=== PATIENT | female | born 1955 | race Caucasian/White ===

== ENCOUNTER 2019-08-10 16:03 | Observation (INO) ==
[2019-08-10 16:57] LABS: BASO# 0.03 X1000 (0.0-0.2); BASO% 0.5 % (0.0-0.8); EOS# 0.14 X1000 (0.0-0.7); EOS% 2.3 % (0.0-10.0); HEMATOCRIT 39.7 % (37.0-47.0); HEMOGLOBIN 12.6 g/dL (12.0-16.0); LYMPH# 0.83 X1000 (1.2-3.4); LYMPH% 13.6 % (20.5-51.1); MCH 27.9 PG (27-31); MCHC 31.7 g/dL (33-37); MONO# 0.39 X1000 (0.11-0.59); MONO% 6.4 % (1.7-9.3); NEUT% 77.2 % (42.2-75.2); PLT 179 X1000 (130-400); RBC 4.51 XMIL (4.2-5.4); RDW 13.5 % (11.5-14.5); WBC 6.09 X1000 (4.8-10.8)
--- NOTE | 2019-08-10 17:08 | Diag Imaging Result Doc PS360 ---
EXAM: CHEST-2 VIEWS HISTORY: sob TECHNIQUE: Two views COMPARISON: 12/24/2017 FINDINGS: The lungs are well expanded. The heart is enlarged. There is central vascular prominence There are no infiltrates. No pleural effusions. IMPRESSION: Cardiomegaly with central vascular prominence Electronically signed by Juan Carlos Ortega 08/10/2019 5:06 PM
[2019-08-10] MEDS ORDERED: LASIX IV ONE (17:35)
[2019-08-10 17:39] LABS: ALB/GLOB RATIO 1.5; ALBUMIN 4.3 g/dL (3.5-5.0); POTASSIUM 3.8 mmol/L (3.5-5.1); TOTAL BILIRUBIN 0.6 mg/dL (0.20-1.00); TOTAL PROTEIN 7.1 g/dL (6.3-8.3)
[2019-08-10] MEDS ORDERED: POTASSIUM CHLORIDE 20% LIQUID PO ONE (17:57)
[2019-08-10] MEDS ORDERED: CATAPRES PO ONE (18:05)
--- NOTE | 2019-08-10 18:08 | EKG Report ---
Test Performed on : 08/10/2019 4:17:03 PM Test Reason : sob. Blood Pressure : / mmHG Vent. Rate : 075 BPM Atrial Rate : 078 BPM P-R Int : 000 ms QRS Dur : 088 ms QT Int : 400 ms P-R-T Axes : 000 003 025 degrees QTc Int : 446 ms Atrial fibrillation. Minimal voltage criteria for LVH, may be normal variant Abnormal ECG When compared with ECG of 11-JAN-2018 23:42, Atrial fibrillation. has replaced Sinus rhythm. Criteria for Anterior infarct are no longer present Nonspecific T wave abnormality has replaced inverted T waves in Inferior leads Unconfirmed Result
--- NOTE | 2019-08-10 18:25 | PROVIDER DOCUMENTATION ---
This chart was entered by Susana Ruiz Scribe, acting as scribe for Sami Crabtree DO. HPI-Respiratory General - General Source: patient, family (daughter) - History of Present Illness-Resp Quality of Pain: reports: none Severity in ED: reports: mild Onset/Duration: reports: 3 days ago Timing: reports: getting worse Cough Quality/Degree: reports: productive cough (yellow sputum) Associated Symptoms: reports: cough, shortness of breath. denies: chest pain/soreness, fever/chills Similar Symptoms Previously?: Yes (pneumonia x3 this year) Recently seen or treated by another doctor?: Yes (came from Urgent Care today) <Sami Crabtree - Last Filed: 08/10/19 18:56> <Leoncio Blank - Last Filed: 08/10/19 20:29> - General Chief Complaint: Shortness of Breath Stated Complaint: CHF,FLUID BUILD UP,HIGH BP Time Seen by Provider: 08/10/19 16:25 Allergies/Adverse Reactions: Patient Allergies Allergy/AdvReac Type Severity Reaction Status Date / Time Penicillins Allergy Severe ANAPHYLAXIS Verified 08/10/19 16:53 Home Medications: Home Medication List Medication Instructions Recorded Confirmed Last Taken Type Propranolol [Inderal] 0.5 tab PO DAILY 05/13/12 08/10/19 04/09/16 History BENAZEpril [Lotensin] 20 mg PO BID #0 tablet 12/29/12 08/10/19 04/09/16 Rx ATORVAstatin [Lipitor] 40 mg PO DAILY 08/10/19 08/10/19 Unknown History Calcitonin [Fortical] 1 spr INTRANASAL DAILY 08/10/19 08/10/19 Unknown History Ciprofloxacin HCl [Cipro] 500 mg PO BID #20 tab 08/10/19 Unknown Rx Clopidogrel Bisulfate [Clopidogrel] 75 mg PO DAILY 08/10/19 08/10/19 Unknown History Hydrocodone/Acetaminophen [[place] 1 ea PO TID PRN 08/10/19 08/10/19 Unknown History 7.5-325 Tablet] Nitroglycerin [Nitrostat] 0.4 mg SUBLINGUAL PRN PRN 08/10/19 08/10/19 Unknown History Pantoprazole [Protonix] 40 mg PO DAILY@0700 08/10/19 08/10/19 Unknown History Potassium Chloride 20 meq PO DAILY #30 tab.er.prt 08/10/19 Unknown Rx Pregabalin 50 mg PO DAILY 08/10/19 08/10/19 Unknown History Rivaroxaban [Xarelto] 20 mg PO DAILY 08/10/19 08/10/19 Unknown History - History of Present Illness-Resp Nature of Presenting Problem: Pt is a 63 yowf who came to the ed after going to Urgent Care where they told her she was suffering from CHF after taking an x-ray. Pt has had SOB for the past 3 days that has gotten worse. Pt states that she has been coughing up yellow sputum and has had swelling in her legs but denies pain in chest or abdom en. She complains of sinus pressure. Pt is alert and nontoxic in appearance. Her doctor gave her lasix last week, but she is not taking it. (Sami Crabtree) Review of Systems - Adult - REVIEW OF SYSTEMS - ADULT Constitutional: denies: chills, fever Eyes: reports: no symptoms reported Ears, Nose, Mouth & Throat: reports: no symptoms reported Cardiovascular: denies: chest pain, syncope Respiratory: reports: cough (productive w/ yellow sputum), shortness of breath Gastrointestinal: denies: abdominal pain, vomiting Genitourinary: reports: no symptoms reported Musculoskeletal: reports: no symptoms reported Integumentary: reports: no symptoms reported Neurological: denies: dizziness/vertigo, headache/migraines, syncope Psychiatric: reports: no symptoms reported Endocrine: reports: no symptoms reported Hematologic/Lymphatic: reports: no symptoms reported Allergic/Immunologic: reports: no symptoms reported All Other Systems: Reviewed and Negative <Sami Crabtree - Last Filed: 08/10/19 18:56> Past History - Adult - PAST MEDICAL HISTORY-ADULT Review of Records: reports: Old Records Reviewed, Nursing Assessment Review, Medications Reviewed, Social history reviewed & non-contributory. Major Childhood Illnesses: reports: denies history Cardiovascular: reports: HTN Respiratory: reports: COPD Gastrointestinal: reports: denies history Obstetrical/Gynecological: reports: denies history Genitourinary: reports: denies history Musculoskeletal: reports: denies history Neurological: reports: denies history Psychiatric: reports: denies history Endocrine/Immune: reports: denies history Other Conditions: reports: denies history - PRIOR SURGERIES/PROCEDURES Surgical/Procedure History: reports: reviewed, not pertinent - PRIOR HOSPITALIZATIONS Prior Hospitalizations: reports: for other non-related - IMMUNIZATION STATUS Childhood Immunizations: See Nurse Assessment Flu Vaccine: See Nurse Assessment - FAMILY HISTORY Family History: reviewed, not pertinent - SOCIAL HISTORY Living Situation: alone <Sami Crabtree - Last Filed: 08/10/19 18:56> Physical Exam-General - PHYSICAL EXAM-ADULT Initial Vital Signs Reviewed: Yes (O@ 94 RA) - CONSTITUTIONAL General Appearance: appears well, alert, no apparent distress, obese - EYES Eyes: PERRL/EOMI - HEAD, EARS, NOSE, MOUTH & THROAT HENMT: moist mucous membranes - NECK Neck: non-tender, full range of motion, supple - RESPIRATORY Respiratory: chest non-tender, lungs clear, normal breath sounds - CARDIOVASCULAR Cardiovascular: normal peripheral pulses, regular rate, rhythm - GASTROINTESTINAL (ABDOMEN) Abdominal Exam: normal bowel sounds, non tender, soft - MUSCULOSKELETAL Back Exam: no CVA tenderness, no vertebral tenderness Extremity: normal range of motion, non-tender, normal gait - SKIN Integumentary: normal color, normal turgor, warm/dry - PSYCHIATRIC Psych/Mental Status: normal mood/affect, normal thought content, normal thought process, oriented x 3 <Sami Crabtree - Last Filed: 08/10/19 18:56> - HEART Score HEART Score: History: Slightly Suspicious HEART Score: ECG: Non-Specific Repolarization Disturbance/LBBB/PM HEART Score: Age: 45-65 Years HEART Score: Risk Factors for Atherosclerotic Disease: 1 or 2 Risk Factors HEART Score: Troponin: < or = Normal Limit Total HEART Score:: 3 <Sami Crabtree - Last Filed: 08/10/19 18:56> - HEART Score HEART Score: History: Moderately Suspicious HEART Score: ECG: Non-Specific Repolarization Disturbance/LBBB/PM HEART Score: Age: 45-65 Years HEART Score: Risk Factors for Atherosclerotic Disease: 1 or 2 Risk Factors HEART Score: Troponin: < or = Normal Limit Total HEART Score:: 4 <Leoncio Blank - Last Filed: 08/10/19 20:29> Progress - PLAN OF CARE/RESULTS Result Diagrams: 08/10/19 16:46 08/10/19 16:46 - EKG 1 Time of EKG reading by physician:: 16:20 EKG Read and Signed by:: Sami Crabtree EKG Interpretation (*Must complete 3 of following elements*): Abnormal Rate: 75 Rhythm: Atrial fibrillation [place]: normal QRS: normal [place] Interval: normal ST Wave: normal Comments: Minimal voltage criteria for LVH, may be normal variant - XRAY 1 XRAY Study: Chest Impression: See EMR Report (EXAM: CHEST-2 VIEWS HISTORY: sob TECHNIQUE: Two views COMPARISON: 12/24/2017 FINDINGS: The lungs are well expanded. The heart is enlarged. There is central vascular prominence There are no infiltrates. No pleural effusions. IMPRESSION: Cardiomegaly with central vascular prominence Electronically signed by Juan Carlos Ortega 08/10/2019 5:06 PM 08/10/19 1706 Interpreting Physician: Juan Carlos Ortega MD Dictated Date/Time: 08/10/191704 cc: Sami Crabtree DO; Lisbeth Iverson MD) - CHANGE OF SHIFT REPORT (ED Provider) 1 Report Given and Care Transferred to:: Dr Blank Time of Transfer: 19:00 Items Pending: Other (blood pressure improvement) <Sami Crabtree - Last Filed: 08/10/19 18:56> - PLAN OF CARE/RESULTS Result Diagrams: 08/10/19 16:46 08/10/19 16:46 - CONSULTS/PCP/HOSPITALIST Notification #1 *Consult/PCP/Hospitalist*: Dr Ruano Time Discussed: 20:27 Consult Disposition: Will see in ED, Admit <Leoncio Blank - Last Filed: 08/10/19 20:29> - PLAN OF CARE/RESULTS Progress/Plan/Lab Results: Vital Signs - 8 hr 08/10/19 16:19 Temperature 98.2 F Pulse Rate 76 Respiratory Rate 17 Blood Pressure 217/114 O2 Sat by Pulse Oximetry 94 L Laboratory Results - last 24 hr 08/10/19 08/10/19 08/10/19 16:46 16:46 16:46 WBC RBC Hgb Hct MCV MCH MCHC RDW Std Deviation Plt Count MPV Immature Gran % (Auto) Neut % (Auto) Lymph % (Auto) [place] % (Auto) Eos % (Auto) Baso % (Auto) Immature Gran # (Auto) Neut # (Auto) Lymph # (Auto) [place] # (Auto) Eos # (Auto) Baso # (Auto) Sodium 138 Potassium 3.8 Chloride 100 Carbon Dioxide 25 Anion Gap 13 BUN 10 Creatinine 1.0 H Estimated GFR/1.73 m2 56 BUN/Creatinine Ratio 10 Glucose 101 Calculated Osmolality 275 Calcium 9.0 Total Bilirubin 0.60 AST 23 ALT 11 Alkaline Phosphatase 98 Creatine Kinase 47 Troponin T < 0.010 Svb-L-Vbmzzfkciyo Pept 2214 H Total Protein 7.1 Albumin 4.3 Globulin 2.8 Albumin/Globulin Ratio 1.5 08/10/19 16:46 WBC 6.09 RBC 4.51 Hgb 12.6 Hct 39.7 MCV 88.0 MCH 27.9 MCHC 31.7 L RDW Std Deviation 13.5 Plt Count 179 MPV 9.0 Immature Gran % (Auto) 0.0 Neut % (Auto) 77.2 H Lymph % (Auto) 13.6 L [place] % (Auto) 6.4 Eos % (Auto) 2.3 Baso % (Auto) 0.5 Immature Gran # (Auto) 0.00 Neut # (Auto) 4.70 Lymph # (Auto) 0.83 L [place] # (Auto) 0.39 Eos # (Auto) 0.14 Baso # (Auto) 0.03 Sodium Potassium Chloride Carbon Dioxide Anion Gap BUN Creatinine Estimated GFR/1.73 m2 BUN/Creatinine Ratio Glucose Calculated Osmolality Calcium Total Bilirubin AST ALT Alkaline Phosphatase Creatine Kinase Troponin T Guf-L-Avwwuxejmwa Pept Total Protein Albumin Globulin Albumin/Globulin Ratio Orders Category Date Time Status CHEST-2 VIEWS [RAD] Stat Exams 08/10/19 16:47 Completed CBC WITH ELECTRONIC DIFF [HEME] Stat Lab 08/10/19 16:46 Completed CK PROFILE [SP CHEM] Stat Lab 08/10/19 16:46 Completed COMPREHENSIVE METABOLIC PANEL [CHEM] Stat Lab 08/10/19 16:46 Completed PRO B-NATRIURETIC PEPTIDE Stat Lab 08/10/19 16:46 Completed TROPONIN T Stat Lab 08/10/19 16:46 Completed Clonidine [Catapres] Med 08/10/19 18:05 Discontinued 0.1 mg PO NOW ONE Furosemide [Lasix] Med 08/10/19 17:35 Discontinued 40 mg IV NOW ONE Potassium Chloride 20% Liquid Med 08/10/19 17:57 Discontinued 20 meq PO NOW ONE EKG [EKG] Stat Ther 08/10/19 16:21 Draft At recheck, pt admitted that she has been having chest pressure radiating through to her back for the past day. Pt agrees with plan. (Leoncio Blank) Departure <Sami Crabtree - Last Filed: 08/10/19 18:56> - Departure Date of Disposition Decision: 08/10/19 Time of Disposition Decision: 20:27 Certified Medical Emergency: Emergent - Critical Care Note This patient required my direct & personal management of CC.: No <Leoncio Blank - Last Filed: 08/10/19 20:29> - Departure DIAGNOSIS: CHF (congestive heart failure), HTN (hypertension), Chest pain Disposition: ADMITTED INPATIENT 09 Condition: Fair Additional Instructions: Patient has lasix at home. Take daily and follow up with Dr Robert Campbell 2. ED Follow Up Instructions: You have been treated by a care provider in the Emergency Department. These instructions are being provided to you so you can have an understanding of how to care for yourself upon discharge. Upon discharge from the Emergency Department, you are responsible for making arrangements for follow-up care by a physician of your choice. Take all prescribed medications as directed. Return to the Emergency Department immediately for any new or worsening symptoms. You may call the Physician Referral phone number at [phone] to obtain a list of Physicians who are taking new patients. Prescriptions: Ciprofloxacin HCl [Cipro] 500 mg PO BID #20 tab Potassium Chloride 20 meq PO DAILY #30 tab.er.prt Referrals and Follow-Ups: Lisbeth Iverson MD [Primary Care Provider] - Attestation - Physician/ ELEANOR Attestation Patient care was provided by Advanced Practice Provider:: No The physician spent face to face time with patient:: Yes Advanced Practice Provider documentation review:: Supervising physician onsite and consulted in the evaluation and care of this patient. The physician did have a face to face encounter with the patient. <Sami Crabtree - Last Filed: 08/10/19 18:56> - Physician/ ELEANOR Attestation Patient care was provided by Advanced Practice Provider:: No The physician spent face to face time with patient:: Yes Advanced Practice Provider documentation review:: Supervising physician onsite and consulted in the evaluation and care of this patient. The physician did have a face to face encounter with the patient. <Leoncio Blank - Last Filed: 08/10/19 20:29> This chart was documented by the indicated scribe, (Susana Ruiz, Sumeetibe) and accurately reflects the services I performed and decisions made by , Sami Crabtree DO, as attested by the provider's signature.
[2019-08-10] MEDS ORDERED: NITROGLYCERIN SL PRN (23:14)
[2019-08-10] MEDS ORDERED: FLU VACCINE IM ONE (23:37)
[2019-08-11 00:33] LABS: BASO# 0.05 X1000 (0.0-0.2); BASO% 0.7 % (0.0-0.8); EOS# 0.13 X1000 (0.0-0.7); EOS% 1.9 % (0.0-10.0); HEMATOCRIT 41.2 % (37.0-47.0); HEMOGLOBIN 13.1 g/dL (12.0-16.0); LYMPH# 1.49 X1000 (1.2-3.4); LYMPH% 21.4 % (20.5-51.1); MCH 28.4 PG (27-31); MCHC 31.8 g/dL (33-37); MCV 89.4 FL (81-99); MONO# 0.62 X1000 (0.11-0.59); MONO% 8.9 % (1.7-9.3); MPV 9.5 FL (7.4-10.4); NEUT# 4.66 X1000 (1.4-6.5); NEUT% 67.1 % (42.2-75.2); PLT 196 X1000 (130-400); RBC 4.61 XMIL (4.2-5.4); RDW 13.7 % (11.5-14.5); WBC 6.95 X1000 (4.8-10.8)
--- NOTE | 2019-08-11 02:58 | HISTORY AND PHYSICAL ---
PRIMARY CARE PHYSICIAN: Dr. Iverson. CHIEF COMPLAINT: Chest pain, shortness of breath times several days. HISTORY OF PRESENTING ILLNESS: A 64-year-old morbidly obese female with a history of COPD, coronary artery disease, hypertension and paroxysmal atrial fibrillation, who had presented to emergency department with several days history of having some chest discomfort and shortness of breath. The patient states that it felt like heaviness and she did not feel well, subsequently had come to the emergency department. In the ED, she was evaluated. Due to her presenting symptoms, she will require admission for further management. During her initial presentation she had laboratories done which did show elevated BNP. It was suspected possibly she had CHF. She was given Lasix and she diuresed well. At the time of my examination, she denied any headache, fever, chills, nausea, vomiting, diarrhea, hemoptysis, complained of chest discomfort and shortness of breath. PAST MEDICAL HISTORY: Includes COPD, coronary artery disease, hypertension, GERD, morbid obesity, paroxysmal atrial fibrillation. PAST SURGICAL HISTORY: Left heart catheterization, left knee arthroscopy. CURRENT MEDICATIONS: Atorvastatin 40 mg p.o. daily, benazepril 20 mg p.o. b.i.d., Plavix 75 mg p.o. daily, [place] 7.5 one p.o. t.i.d., pantoprazole 40 mg p.o. daily, pregabalin 50 mg p.o. daily, propranolol 20 mg half tablet daily, Xarelto 20 mg p.o. daily. SOCIAL HISTORY: She is a former smoker. No history of alcohol or illicit drug use. FAMILY HISTORY: No history of coronary artery disease. REVIEW OF SYSTEMS: Fourteen point review of system as listed in HPI. Other systems negative. PHYSICAL EXAMINATION: GENERAL: Cooperative, friendly female. She is resting more comfortably now. VITAL SIGNS: Temperature 98.2 degrees, pulse 76, respirations 17, blood pressure 217/114. HEENT: Atraumatic, normocephalic. Extraocular movements intact. PERRLA. NECK: No masses. CHEST: Bibasilar rales. CARDIOVASCULAR: Regular rate and rhythm. ABDOMEN: Soft, obese, positive bowel sounds. EXTREMITIES: +1 edema. NEUROLOGIC: She is awake, alert, oriented x3. GENITOURINARY: No bladder distention. SKIN: Warm. LABORATORIES AND STUDIES: Sodium 138, potassium 3.8, chloride 100, CO2 is 25, BUN is 10, creatinine is 1.0, glucose is 101. ProBNP is 2214. WBC 6.09, hemoglobin 12.6, hematocrit 39.7, platelets 179,000. Chest x-ray shows cardiomegaly with central vascular prominence. ASSESSMENT: A 64-year-old morbidly obese female with a history of hypertension, chronic obstructive pulmonary disease, gastroesophageal reflux disease and paroxysmal atrial fibrillation, who had presented to the emergency department with several days history of having chest discomfort and shortness of breath. She was evaluated in the emergency department. It was suspected she was having CHF exacerbation. She was given diuresis with Lasix. She improved somewhat. However, due to her presenting symptoms she will require admission for further management. 1. Suspected congestive heart failure exacerbation. 2. Chest pain. 3. Chronic obstructive pulmonary disease. 4. Hypertension. 5. Paroxysmal atrial fibrillation. PLAN: 1. We will admit patient to medical floor with telemetry. 2. We will continue with gentle diuresis with Lasix. 3. We will continue with cardiac workup and trend her troponins. 4. We will consult Cardiology. 5. We will continue with DuoNebs p.r.n. 6. We will monitor blood pressure closely. 7. We will continue with anticoagulation and monitor her on telemetry. 8. Patient is on Xarelto and this will suffice for DVT prophylaxis. 9. We will continue to follow, and reassess and make further recommendation based on patient's clinical course. cc: MD Tevin Contreras MD
[2019-08-11] MEDS ORDERED: LASIX IV SCH (06:30)
[2019-08-11] MEDS: PROTONIX PO SCH (06:38)
[2019-08-11] MEDS: PRILOSEC PO SCH (06:38)
[2019-08-11 06:57] LABS: BASO# 0.03 X1000 (0.0-0.2); BASO% 0.6 % (0.0-0.8); EOS# 0.18 X1000 (0.0-0.7); EOS% 3.4 % (0.0-10.0); HEMATOCRIT 36.9 % (37.0-47.0); HEMOGLOBIN 11.5 g/dL (12.0-16.0); LYMPH# 1.16 X1000 (1.2-3.4); LYMPH% 21.6 % (20.5-51.1); MCH 27.9 PG (27-31); MCHC 31.2 g/dL (33-37); MCV 89.6 FL (81-99); MONO# 0.51 X1000 (0.11-0.59); MONO% 9.5 % (1.7-9.3); MPV 9.5 FL (7.4-10.4); NEUT# 3.48 X1000 (1.4-6.5); NEUT% 64.9 % (42.2-75.2); PLT 174 X1000 (130-400); RBC 4.12 XMIL (4.2-5.4); RDW 13.6 % (11.5-14.5); WBC 5.36 X1000 (4.8-10.8)
[2019-08-11 08:02] LABS: CHOLESTEROL 107 mg/dL (0-200); HDL 34 mg/dL (45-65); LDL 56 mg/dL; TRIGLYCERIDES 85 mg/dL (35-135); VLDL 17 mg/dL
[2019-08-11] MEDS: NORCO-7.5 PO PRN ×2 (09:21→21:00)
[2019-08-11] MEDS: ASPIRIN PO SCH (09:23)
[2019-08-11] MEDS: INDERAL PO SCH (09:24)
[2019-08-11] MEDS: LOTENSIN PO SCH ×2 (09:25→20:54)
[2019-08-11] MEDS: PLAVIX PO SCH (09:25)
[2019-08-11] MEDS: ZOFRAN IV PRN (11:28)
--- NOTE | 2019-08-11 12:15 | PROGRESS NOTE ---
DATE: 08/11/2019 SUBJECTIVE: The patient is feeling much better after receiving the IV Lasix. She has urinated a lot, but no I Os have been obtained. She says outpatient, Dr. Iverson had stopped hydrochlorothiazide due to a bout of gout in her left lower extremity about 6 weeks ago. But she had called him back, and he had started her on Lasix. However, she took it briefly and stopped it, as she says she did like it. She says she sees now that she has to take it. Note, she sees Dr. Jones regularly and has another appointment with him the first of the year. She states she has had 2 heart attacks about 3 years ago and had her last left heart catheterization then and has not had a stress test since that time as well. She denies any chest pain this morning. OBJECTIVE: Vital signs: Afebrile, pulse 67, respirations 18, blood pressure 169/94, O2 saturation on room air 93 to 94 percent. CV: Irregularly irregular. Lungs: CTA. Abdomen: Very protuberant. Morbid obesity noted. Extremities: No major edema. Neurologic: Cranial nerves are intact. No focal deficits. LABORATORY DATA: Reviewed from admission. Cardiac enzymes, troponin levels negative x3. ProBNP on admission was 2214. LDL is 56. Chest x-ray on admission showed some cardiomegaly with central vascular prominence per radiologist. ASSESSMENT: 1. Congestive heart failure exacerbation. 2. Chest pain. 3. History of coronary artery disease. 4. Paroxysmal atrial fibrillation with controlled ventricular response. 5. Chronic obstructive pulmonary disease. 6. Hypertension. 7. Morbid obesity. 8. Gout. The patient may be a candidate for startup of allopurinol to help prevent this since it has been 6 weeks since her attack. PLAN: She is stable on her medications and receiving the Lasix 40 mg IV q.12 hours. She is also on aspirin, Lipitor, Lotensin, Fortical, Plavix, [place] 7.5 p.r.n., omeprazole, pantoprazole, Lyrica, Inderal, Xarelto p.r.n., and clonidine. We will continue the Lasix and current medications. Monitor her blood pressure closely. It may be that she will need additional antihypertensive such as Norvasc or Coreg. We will leave that to Dr. Brown who is going to see her in consultation. We will ask nurses to check I Os and repeat labs and chest x-ray in the morning. cc: MD Tevin Le MD
--- NOTE | 2019-08-11 18:22 | CONSULTATION ---
DATE OF CONSULTATION: 08/11/2019 CARDIOLOGY CONSULTATION: IMPRESSION: 1. Congestive heart failure which appears to have improved with diuresis. 2. Recent cough productive of yellow sputum. Consider possible bronchitis. 3. Atherosclerotic coronary disease. The patient continues without angina. 4. Massive obesity. 5. Chronic obstructive pulmonary disease. 6. Hypertension. 7. Paroxysmal atrial fibrillation. RECOMMENDATIONS: 1. Transition from IV Lasix to oral Lasix. 2. Arrange follow-up echocardiography. 3. Anticipate patient should be able to go home tomorrow after echocardiography. She already has scheduled followup with her regular keg raiser, Dr. Jones, on August 22. HISTORY: This 63-year-old white female with past history of massive obesity, atherosclerotic coronary disease, COPD, paroxysmal atrial fibrillation, hypertension, hyperlipidemia, sleep apnea, and venous insufficiency was admitted through the emergency room yesterday p.m. for diuresis for congestive heart failure. She relates that for several days this past week she has been having cough productive of yellow sputum. However, yesterday she noted some exertional shortness of breath walking across the room. She went to urgent care and had evaluation there which included chest x-ray. She is advised that she appeared to have congestive heart failure and was referred to the emergency room. In emergency room, her proB-natriuretic peptide level was elevated, and she was given IV Lasix. She diuresed and reports feeling better. She has not had any chest discomfort. PAST MEDICAL HISTORY: 1. Massive obesity. 2. Atherosclerotic coronary disease with previous small inferior myocardial infarction March 2016. 3. Hypertension. 4. Hyperlipidemia. 5. Paroxysmal atrial fibrillation. 6. Obstructive sleep apnea. 7. Venous insufficiency of lower extremity. 8. Previous DVT. 9. Previous transient ischemic attack. 10. Chronic obstructive pulmonary disease. 11. Gastroesophageal reflux disease. PAST SURGICAL HISTORY: Includes left knee arthroscopic procedure. ALLERGIES: She is allergic or intolerant to penicillin. MEDICATIONS PRIOR TO ADMISSION: As listed. SOCIAL HISTORY: She has history of previous cigarette use in the past. She does not use alcohol. FAMILY HISTORY: Positive for coronary disease. REVIEW OF SYSTEMS: Pulmonary: Noteworthy for recent cough productive of yellow sputum as well as some exertional shortness of breath. There has been no orthopnea. Gastrointestinal: Noncontributory beyond history present illness. Constitutional: Noncontributory beyond history of present illness. Remainder of review of systems negative/noncontributory beyond history of present illness with 14 total systems reviewed. PHYSICAL EXAMINATION: General: This is a massively obese, older white female in no distress on room air. Vital signs: Blood pressure 169/94, heart rate 67, oxygen saturation 93% to 94% on room air. HEENT: Extraocular movements intact. Mucous membranes are moist. Jugular venous distention cannot be appreciated. There are no carotid bruits. Chest: Clear to auscultation. Cardiac Exam: Reveals a regular rate and rhythm without appreciable murmur or gallop. Abdomen: Obese, nontender. Bowel sounds audible. Extremities: Without edema. There are chronic venous stasis changes. Neurologic: Reveals her to be alert and fully oriented. Speech is fluent. She moves all 4 extremities equally well. Skin: Warm and dry. Psychiatric: Reveals her mood to be appropriate. PERTINENT DATA: Twelve-lead EKG demonstrates atrial fibrillation and minimal voltage criteria for left hypertrophy. LABORATORY DATA: Includes a white blood cell count of 5.36, hematocrit 36.9, hemoglobin 11.5, platelet count 174,000. Sodium 138, potassium 3.8, chloride 100, carbon dioxide 25, BUN 10, creatinine 1. Glucose 101. Initial CPK 46. Follow-up CPK 42. Initial troponin T less than 0.01. Follow-up troponin T less than 0.01. Pro-B natriuretic peptide level 2214. Triglycerides 85, total cholesterol 107, LDL cholesterol 56, VLDL cholesterol 17, HDL cholesterol 34. cc: MD Tevin Mccann MD
[2019-08-11] MEDS: TYLENOL PO PRN (19:15)
[2019-08-11] MEDS: XARELTO PO SCH (20:53)
[2019-08-11] MEDS: LIPITOR PO SCH (20:54)
[2019-08-11] MEDS: LYRICA PO SCH (20:58)
[2019-08-12] MEDS: TYLENOL PO PRN ×2 (01:01→14:22)
[2019-08-12] MEDS: ZOFRAN IV PRN ×2 (01:01→23:50)
[2019-08-12] MEDS: PROTONIX PO SCH (06:06)
[2019-08-12] MEDS: PRILOSEC PO SCH (06:06)
[2019-08-12] MEDS: FORTICAL NAS SCH ×2 (06:09→09:51)
[2019-08-12 07:32] LABS: BASO# 0.05 X1000 (0.0-0.2); EOS# 0.19 X1000 (0.0-0.7); EOS% 3.6 % (0.0-10.0); HEMATOCRIT 40.3 % (37.0-47.0); HEMOGLOBIN 12.6 g/dL (12.0-16.0); LYMPH# 1.11 X1000 (1.2-3.4); LYMPH% 21.2 % (20.5-51.1); MCH 28.5 PG (27-31); MCHC 31.3 g/dL (33-37); MCV 91.2 FL (81-99); MONO# 0.43 X1000 (0.11-0.59); MONO% 8.2 % (1.7-9.3); MPV 9.6 FL (7.4-10.4); NEUT# 3.45 X1000 (1.4-6.5); PLT 173 X1000 (130-400); RBC 4.42 XMIL (4.2-5.4); RDW 13.7 % (11.5-14.5); WBC 5.23 X1000 (4.8-10.8)
[2019-08-12 07:55] LABS: CALCIUM 9.2 mg/dL (8.8-10.2); CREATININE 1.4 mg/dL (0.5-0.9); POTASSIUM 3.8 mmol/L (3.5-5.1)
[2019-08-12] MEDS ORDERED: LASIX PO SCH (09:00)
--- NOTE | 2019-08-12 09:22 | Diag Imaging Result Doc PS360 ---
CHEST-2 VIEWS - 08/12/2019 INDICATION: hypoxia COMPARISON: 08/10/2019 FINDINGS: There has been improvement in the nonspecific bibasilar infiltrates or atelectasis. There is still some focal linear atelectasis worse in the right lung base. Heart size remains borderline enlarged. No pneumothorax or significant pleural effusion. IMPRESSION: Improved aeration of the lung bases. Electronically signed by Sudhir Camilo 08/12/2019 9:20 AM
[2019-08-12] MEDS: ASPIRIN PO SCH ×2 (09:34→09:38)
[2019-08-12] MEDS: LIPITOR PO SCH (09:34)
[2019-08-12] MEDS: XARELTO PO SCH (09:34)
[2019-08-12] MEDS: LYRICA PO SCH ×2 (09:35→09:37)
[2019-08-12] MEDS: LOTENSIN PO SCH ×2 (09:35→22:29)
[2019-08-12] MEDS: INDERAL PO SCH (09:35)
[2019-08-12] MEDS: PLAVIX PO SCH (09:35)
[2019-08-12] MEDS: NORCO-7.5 PO PRN ×2 (09:49→22:27)
--- NOTE | 2019-08-12 17:58 | ECHO REPORT ---
ORDER DATE: 08/12/2019 MEASUREMENTS: Septal thickness 1.3, aortic root 3.5, left atrium 4.8. SUMMARY: 1. Technically difficult study due to limited acoustic window quality. 2. Aortic valve is trileaflet and opens normally on 2-dimensional images. The peak gradient across the aortic valve is 17 mmHg. There is very mild aortic regurgitation. Mitral and tricuspid valves are without evidence of structural abnormality while pulmonic valve is not well demonstrated. There is mild mitral regurgitation and mild tricuspid regurgitation. The estimated systolic PA pressure by Doppler is 45 mmHg suggesting mild pulmonary hypertension. The aortic root is normal in size. 3. Normal left ventricular chamber size with mild concentric left hypertrophy is demonstrated. The estimated left ejection fraction appears to be approximately 60% to 65%. No regional wall motion abnormality is evident. Doppler suggests grade 1 left ventricular diastolic dysfunction. Left atrium is moderately enlarged. The right atrium and right ventricle are normal in size with grossly preserved right ventricular systolic function. 4. No pericardial effusion. 5. Inferior vena cava not well demonstrated. CONCLUSIONS: 1. Very mild aortic regurgitation. 2. Mild mitral regurgitation. 3. Mild tricuspid regurgitation with mild pulmonary hypertension by Doppler. 4. Mild concentric left hypertrophy with estimated left ejection fraction of 60% to 65%. 5. Grade 1 left ventricular diastolic dysfunction suggested. 6. Moderate left atrial enlargement. cc: MD Tevin Mccann MD
--- NOTE | 2019-08-12 17:59 | PROGRESS NOTE ---
DATE: 08/12/2019 SUBJECTIVE: Patient continues without shortness of breath or chest discomfort on room air. OBJECTIVE: Vital Signs: Blood pressure 154/81, heart rate 64, oxygen saturation 96% on room air. There is no significant jugular venous distention. Chest: Clear to auscultation. Cardiac Exam: Reveals a regular rate and rhythm without appreciable murmur or gallop. Extremities: Without edema. LABORATORY DATA: Includes a white blood cell count of 5.23, hematocrit 40.3, hemoglobin 12.6, platelet count 173,000. Sodium 144 potassium 3.8, chloride 100. Carbon dioxide 32, BUN 20, creatinine 1.4, glucose 108. Echocardiography demonstrates mild concentric left hypertrophy with estimated ejection fraction of 60 to 65 percent. There is mild mitral regurgitation, very mild aortic regurgitation, mild tricuspid regurgitation. Mild pulmonary hypertension suggested by Doppler. IMPRESSION: 1. Acute congestive heart failure with preserved left ventricular ejection fraction. Patient improved with diuresis. Labs today suggest. Mild prerenal azotemia. 2. Recent cough productive of yellow sputum. Suspect likely bronchitis. 3. Atherosclerotic coronary disease. Patient continues without angina. 4. Massive obesity. 5. Chronic obstructive pulmonary disease. 6. Hypertensive cardiovascular disease with mild concentric left hypertrophy. 7. Paroxysmal atrial fibrillation. RECOMMENDATIONS: 1. Reduce dose of Lasix to 20 mg p.o. daily. 2. Reasonable for patient to be discharged to home and have followup with her regular payroll consultant, Dr. Jones. She actually already has an appointment scheduled to see him on August 222019. cc: MD Tevin Mccann MD
--- NOTE | 2019-08-12 21:50 | PROGRESS NOTE ---
DATE: 08/12/2019 SUBJECTIVE: A 63-year-old, white female, obese, admitted on 08/10 with a chest pain, shortness of breath. She is morbidly obese. She has history of COPD, coronary artery disease and PAF, hypertension. Please see the H and P. The patient was seen by veterinary parasitologist. The patient got better with IV diuresis. This morning, the patient was in the echo lab. REVIEW OF SYSTEMS: Decreased shortness of breath. No chest pain, as well as swelling. PAST MEDICAL HISTORY: Reviewed. PAST SURGICAL HISTORY: Reviewed. MEDICINES: Reviewed. ALLERGIES: Penicillin. PHYSICAL EXAMINATION: Temperature is 98.4 degrees, pulse 64, blood pressure 154/81, 96% on room air. I's and O's: Negative 250. Weight 316 pounds, decreased from 334. She is morbidly obese. Clinical exam is suboptimal. Lungs: Poor air entry. Heart: Distant heart sounds. Abdomen: Belly is soft, obese. Extremities: 1+ edema. INVESTIGATIONS: CBC: White cell count 5.2, hematocrit 40, platelets 173,000. Sodium 144, potassium 3.8, chloride 100, BUN 20, creatinine 1.4, glucose 108. Cardiac enzymes times 2 negative. ProBNP 2000, cholesterol 107, HDL 34, LDL 56. Echocardiography report, very mild aortic regurgitation, mitral regurgitation, EF 60 to 65 percent with diastolic dysfunction, moderate left atrial enlargement. Chest x-ray stable. EKG: Atrial fibrillation. ASSESSMENT AND PLAN: 1. Congestive heart failure, diastolic dysfunction, chronic atrial fibrillation. 2. Noncritical coronary artery disease. 3. Chronic obstructive pulmonary disease. 4. T6 compression fracture. 5. Acid reflux disease. 6. Osteoarthritis. 7. B12 deficiency. 8. Vitamin D deficiency. 9. Cordarone toxicity. PLAN OF CARE: 1. Continue aspirin, Plavix, Lasix 40 mg daily. 2. T6 compression fracture on calcitonin with calcium and vitamin D. 3. Vitamin B12, vitamin D replacement. 4. Hypertension on Lotensin 20 p.o. b.i.d., Inderal 10 daily. The patient is already on Xarelto for stroke prevention, Inderal for rate control. 5. Gastrointestinal prophylaxis with Protonix. 6. Chronic pain on Lyrica and [place]. 7. Hyperlipidemia on Lipitor. 8. If she continues to improve, will discharge in the morning. Follow up as an outpatient. LEVEL OF DOCUMENTATION: 35 minutes. cc: Tevin Iverson MD
[2019-08-13] MEDS: PROTONIX PO SCH (06:24)
[2019-08-13] MEDS: TYLENOL PO PRN (06:27)
[2019-08-13 07:43] VITALS: BP 150/102
[2019-08-13] MEDS ORDERED: PREVNAR 13 IM ONE (08:23)
[2019-08-13] MEDS ORDERED: LIPITOR PO SCH (09:00)
[2019-08-13] MEDS ORDERED: LASIX PO SCH (09:00)
[2019-08-13] MEDS ORDERED: PNEUMOVAX 23 IM ONE (09:12)
[2019-08-13] MEDS: XARELTO PO SCH (10:35)
[2019-08-13] MEDS: INDERAL PO SCH (10:35)
[2019-08-13] MEDS: LYRICA PO SCH (10:35)
[2019-08-13] MEDS: PLAVIX PO SCH (10:35)
[2019-08-13] MEDS: ASPIRIN PO SCH (10:35)
[2019-08-13] MEDS: LOTENSIN PO SCH (10:35)
[2019-08-13] MEDS: FORTICAL NAS SCH (10:38)
--- NOTE | 2019-08-15 21:40 | DISCHARGE SUMMARY ---
ADMISSION DATE: 08/10/2019 DISCHARGE DATE: 08/13/2019 DISCHARGING DIAGNOSIS: 1. Acute shortness of breath due to diastolic dysfunction. 2. Congestive heart failure with underlying Pickwickian syndrome. SECONDARY DIAGNOSIS: 1. T6 compression fracture, stable. 2. COPD. 3. Noncritical CAD. 4. Hypertension. 5. Acid reflux disease. 6. Morbid obesity. 7. BMI 52. 8. PAF. 9. Osteoarthritis. 10. Vitamin B12 deficiency. 11. Vitamin D deficiency. 12. 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 CONSULT: Donell Caicedo. PROCEDURES: Echocardiography report, very mild AR, mitral regurgitation, ejection fraction 60% with grade 1 diastolic dysfunction. Moderate left atrial enlargement. EKG, atrial fibrillation rate controlled. Chest x-ray improved aeration of both lungs. BRIEF HISTORY: Please see the H and P that was done on 08/10/2019. In brief, she is a 64-year- old morbidly obese female came in with shortness of breath, atypical chest pain. The patient has known history of intermittent atrial fibrillation, not able to tolerate Cordarone. Patient is well known to Dr. Jones. HOSPITAL COURSE: The patient was given oxygen, IV Lasix, and subsequently was ruled out for cardiac enzymes for myocardial infarction. After diuresis her symptoms are much improved. Dr. Brown was consulted and she is going to follow up as an outpatient with Dr. Jones. Patient is anxious to go home. At the time of discharge, weight is 315 pounds. LABS: White cell count 5.2, hematocrit 40, platelets 173,000. Sodium 144, potassium 3.8, chloride 100, BUN 20, creatinine 1.4, glucose 108. ProBNP 2000. Triglycerides 85, cholesterol 107, LDL 56, HDL 34. DISCHARGE INSTRUCTIONS: Encouraged to lose weight. Low-salt diet. Fluid restrictions. Flu vaccine 08/13/2019, pneumococcal vaccine 08/13/2019. Inderal 20 mg half a tab daily, Lotensin 20 p.o. b.i.d., Plavix 75 daily, [place] 7.5 q. 8 h. as needed, Lyrica 50 mg daily, Xarelto 20 daily, Lipitor 40 daily, calcitonin spray 1 spray daily, Protonix 40 daily, Lasix 40 daily. Follow up in my office in 10 days as well as Dr[address] Jones. cc: MD Adam Costa MD
== END 2019-08-13 10:47 | disposition home or self-care (01) ==
LOC: ED 16:03 → SUATTDRO 22:25 → INTOOBSV 22:25 → 4N 22:25
PROVIDERS: ADMIT Internal Medicine; ATTEND Internal Medicine